=== PATIENT | female | born 1935 | race Caucasian/White ===

== ENCOUNTER 2017-01-11 10:09 | Emergency (ER) | payer MEDICARE, OTHER ==
[2015-11-11 10:23] VITALS: BMI 26.9
[~2017-01-11 10:09] MED LIST: DILAUDID4 MG PO; DITROPAN X5 MG/BOTTL PO; ELIQUIS2.5 MG PO; HYDROCODONE-APA1 TAB PO; MOBIC7.5 MG PO; OXYBUTYNIN CHLOR5 MG PO; PRESERVISION AR1 CAP PO; SUPHEDRINE 12-120 MG PO; TIROSINT88 MCG PO; ULTRAM50 MG PO; VITAMIN B-12500 MC1 PO; VITAMIN B650 MG PO; VITAMIN D31000 UNI2 PO
== END 2017-01-11 13:10 | disposition home or self-care (01) ==
LOC: D.ER 10:09
DX: M54.16 Radiculopathy, lumbar region (principal); K21.9 Gastro-esophageal reflux disease without esophagitis

== ENCOUNTER → 2017-11-27 20:46 | Outpatient (CLI) | payer MEDICARE, OTHER ==
[2015-11-11 10:23] VITALS: BMI 26.9
== END | disposition home or self-care (01) ==
LOC: D.MAMMO 14:15
DX: Z12.31 Encounter for screening mammogram for malignant neoplasm of breast (principal)

== ENCOUNTER → 2017-12-26 20:41 | Outpatient (CLI) | payer MEDICARE, OTHER ==
[2015-11-11 10:23] VITALS: BMI 26.9
== END | disposition home or self-care (01) ==
LOC: D.MAMMO 15:00
DX: R92.8 Other abnormal and inconclusive findings on diagnostic imaging of breast (principal)